=== PATIENT | female | born 1980 | race Caucasian/White ===

== ENCOUNTER 2018-01-16 14:01 | Emergency (ER) | payer OTHER, SELFPAY ==
[2018-01-16 14:07] VITALS: BP 110/67; PULSE 66; RESP 16; TEMP 97.5; O2SAT 99
--- NOTE | 2018-01-16 14:37 | ED PDOC ---
HPI: Eye Injury/Pain Chief Complaint (Nursing): Eye Problem Chief Complaint (Provider): Left Eye Swelling and Itching History Per: Patient History/Exam Limitations: no limitations Onset/Duration Of Symptoms: Days Current Symptoms Are (Timing): Still Present Injury To Eye?: No Severity: None Wears Contact Lens?: No Associated Symptoms: Swelling, Itching. denies: Discharge From Eye Additional Complaint(s): 37 year old female presents to the emergency department complaining of swelling and itching to her left eye as well as small bumps on the left side of her face. Patient reports that she feels as though small insects are crawling on her skin. Past Medical History Reviewed: Historical Data, Nursing Documentation, Vital Signs Vital Signs: Last Vital Signs Temp 97.5 F L 01/16/18 14:04 Pulse 66 01/16/18 14:04 Resp 16 01/16/18 14:04 BP 110/67 01/16/18 14:04 Pulse Ox 99 01/16/18 14:04 - Medical History PMH: No Chronic Diseases - Surgical History Surgical History: No Surg Hx - Family History Family History: States: Unknown Family Hx - Living Arrangements Living Arrangements: With Family - Social History Current smoker - smoking cessation education provided: Yes (Light Smoker < 10 Cigarettes Daily) Ex-Smoker (has not smoked in the last 12 months): Yes Alcohol: Social Drugs: Denies - Home Medications Home Medications: Ambulatory Orders Medication Instructions Recorded Valacyclovir HCl [Valtrex] 1 gm PO TID #21 tablet 01/16/18 - Allergies Allergies/Adverse Reactions: Allergies Allergy/AdvReac Type Severity Reaction Status Date / Time No Known Allergies Allergy Verified 01/16/18 14:04 Review of Systems ROS Statement: Except As Marked, All Systems Reviewed And Found Negative Constitutional: Negative for: Fever Eyes: Positive for: Other (left eye swelling and itching). Negative for: Conjunctivae Inflammation, Redness Skin: Negative for: Rash Physical Exam - Reviewed Nursing Documentation Reviewed: Yes Vital Signs Reviewed: Yes - Physical Exam Appears: Positive for: Non-toxic, No Acute Distress Head Exam: Positive for: NORMAL INSPECTION (injection small papular lesion noted posterior scalp and left side of face no obvious vesicles ) Skin: Positive for: Normal Color, Warm, Dry. Negative for: Rash Eye Exam: Positive for: EOMI, PERRL, Other (crusty legion noted above left eyebrow; no flourescine uptake noted.). Negative for: Conjunctival injection Cardiovascular/Chest: Positive for: Regular Rate, Rhythm, Chest Non Tender. Negative for: Tachycardia Respiratory: Positive for: Normal Breath Sounds. Negative for: Wheezing, Respiratory Distress Neurologic/Psych: Positive for: Alert, Oriented, Gait - ECG O2 Sat by Pulse Oximetry: 99 (RA) Pulse Ox Interpretation: Normal Medical Decision Making Medical Decision Making: Initial Impression 37 year old female presenting with eye swelling and itching Initial Plan: * Reevaluation 1430 Spoke with the office of Dr. Martinez appointment arrangements were made for patient to be seen in his office on Thursday at 10am to evaluate eye. Documented by Elen Cardoza acting as a scribe for Parker Castillo PA-C. All medical record entries made by the Scribe were at my direction and personally dictated by me. I have reviewed the chart and agree that the record accurately reflects my personal performance of the history, physical exam, medical decision making, and the department course for this patient. I have also personally directed, reviewed, and agree with the discharge instructions and disposition. Disposition - Clinical Impression Clinical Impression: Herpes zoster Counseled Patient/Family Regarding: Studies Performed, Need For Followup - Disposition Referrals: Raymon Martinez MD [Staff Provider] - Disposition: Routine/Home Disposition Time: 14:30 Condition: FAIR Additional Instructions: SIGA CON DR. MARTINEZ PARA CHEQUAR EL CHRIS A LAS 10 [place] THURSDAY () Prescriptions: Valacyclovir HCl [Valtrex] 1 gm PO TID #21 tablet Instructions: Kerri (DC) Forms: Hangtime (Upper Sorbian) Print Language: TELUGU - POA Present On Arrival: None
== END 2018-01-16 14:42 | disposition home or self-care (01) ==
LOC: H.ER 14:01
DX: B02.9 Zoster without complications (principal); F17.210 Nicotine dependence, cigarettes, uncomplicated